=== PATIENT | male | born 1990 | race Caucasian/White ===

== ENCOUNTER 2019-01-02 21:58 | Emergency (ER) | payer SELFPAY, OTHER ==
[2019-01-02] MEDS ORDERED: Ibuprofen 200 MG TAB ONE (22:07)
== END 2019-01-02 22:39 | disposition home or self-care (01) ==
LOC: BURERS 21:58
DX: S00.12XA Contusion of left eyelid and periocular area, initial encounter (principal); S60.221A Contusion of right hand, initial encounter; V69.9XXA Occupant (driver) (passenger) of heavy transport vehicle injured in unspecified traffic accident, initial encounter
CPT/HCPCS: 99284